=== PATIENT | female | born 1970 | race Caucasian/White ===

== ENCOUNTER 2016-08-02 13:38 | Emergency (ER) | payer OTHER ==
[~2016-08-02] VITALS: Ht 162.6 cm; Wt 69.5 kg
[2016-08-02 13:40] VITALS: BP 148/98; PULSE 83; RESP 16; O2SAT 100
[2016-08-02 14:09] LABS: BASOPHILS % (AUTO) 0.5 % (0-3); EOSINOPHILS % (AUTO) 0.7 % (0-5); MONOCYTES % (AUTO) 9.5 % (4-12); Mean Corpuscular Hemoglobin 32.4 pg (27.0-35.0); NEUTROPHILS % (AUTO) 63.2 % (40-74); Platelet Count 197 bil/L (150-400)
[2016-08-02 14:35] LABS: TROPONIN T < 0.010 ug/L (0.0-0.011)
--- NOTE | 2016-08-02 14:38 | DRSVH ---
PROCEDURE: X-RAY CHEST ONE VIEW, PORTABLE ([id number]) INDICATIONS: CHEST PAIN TECHNIQUE: One view of the chest was acquired. COMPARISON: None. FINDINGS: Surgical changes and devices: None. Lungs and pleura: No pleural effusions or pneumothorax. Lungs are clear. Mediastinum: Mediastinal contours appear normal. Heart size is normal. Bones and chest wall: No suspicious bony lesions. Overlying soft tissues appear unremarkable. IMPRESSION: Normal for age. Dictated by: Johnnie Emerson M.D. on 08/02/2016 at 14:36 Approved by: Johnnie Emerson M.D. on 08/02/2016 at 14:36
[2016-08-02 14:45] LABS: Magnesium 2.2 mg/dL (1.6-2.6)
--- NOTE | 2016-08-02 15:48 | ED.REPORT ---
HPI-Chest Pain 40 and Over Date of Service Aug 02, 2016 ED Provider: Fadi Sorto Patient is a 45 year old female who presents to the ED complaining of midsternal chest pressure onset 1240 today that lasted for 20-30 minutes. Associated symptoms include diaphoresis and SOB. She denies nausea, vomiting, extremity pain, lightheadedness, or any other symptoms. She took 81 mg x3 aspirin at 1300 which lowered her pain from a 6 to a 1. She reports that the water also seemed to help. She had taken Ibuprofen this afternoon on an empty stomach for a headache. She was recently sitting in a car for approximately 7 hours on a trip down to [place]. Nursing Notes Stated Complaint: CHEST PAIN Chief Complaint: Dysrhythmia/Cardiac Nursing Notes Reviewed: Yes Allergies: Coded Allergies: Penicillins (Verified Allergy, Mild, RASH, 08/02/16) General Time Seen by MD: 15:48 Chief Complaint Chest pressure Hx Obtained From: Patient Arrived By: Walk-in Sudden in Onset?: Yes Onset Occurred: 1 - 4 hours ago Similar Sx Previous: No Risk Factors )( CAD Risk Stratification HypertensionNo Diabetes mellitus, No Known CAD Risk factors reviewed )( TAD Risk Stratification HypertensionNo High intensity wt lifting, No Risk factors reviewed )( PE Risk Stratification ImmobilizationNo Estrogen Medicine / BCP's, No , No Previous DVT, No Previous PE Risk factors reviewed Past Medical History Past Medical History Reports: Hypertension, Denies: Coronary artery disease, Diabetes mellitus Past Surgical History Unknown Family History Mother had 2 stents placed in 60's Sister has DM and stents as well. Smoking History Unknown if Ever Smoker Ambulatory Status Independent Review of Systems Respiratory: Reports: Shortness of breath Cardiovascular: Reports: Chest pain GI: Denies: Nausea, Vomiting Musculoskeletal: Denies: Extremity pain Skin: Reports Diaphoresis Neurologic: Denies: Lightheaded Complete sys rev & neg: except as marked. Physical Exam Initial Vital Signs Vital Signs (First) Date Time Temp Pulse Resp B/P Pulse Ox O2 Delivery O2 Flow Rate FiO2 08/02/16 13:40 36.4 83 16 148/98 100 Room Air Initial VS: Reviewed Head / Eyes: Atraumatic, Normocephalic Neck: Supple Skin: Warm, Dry Neurologic: Alert, Oriented, Nonfocal Psychiatric: Mood/affect normal, Behavior normal, Normal thought content General/Constitutional: Awake, Alert, No acute distress, Well developed Respiratory / Chest: Breath sounds NL, Breath sounds = bilat, No respiratory distress Cardiovascular: Heart rate NL, Regular rhythm, Heart sounds NL, No gallop, No murmurs, No rubs Abdomen: Soft, Non-tender, BS normoactive Interpretation & Diagnostics Lab Results Interpretation Result Diagram: 08/02/16 1400 08/02/16 1400 Test 08/02/16 14:00 08/02/16 16:21 White Blood Count 5.6th/mm3 (3.8-10.1) Red Blood Count 4.04mil/mm3 (3.90-5.20) Hemoglobin 13.1g/dL (12.0-15.6) Hematocrit 39.2% (35.0-46.0) Mean Corpuscular Volume 97.0fL (81-100) Mean Corpuscular Hemoglobin 32.4pg (27.0-35.0) Mean Corpuscular Hemoglobin Concent 33.4% (32.0-37.0) Red Cell Distribution Width 13.0% (12.3-15.4) Platelet Count 197bil/L (150-400) Neutrophils (%) (Auto) 63.2% (40-74) Lymphocytes (%) (Auto) 25.7% (14-46) Monocytes (%) (Auto) 9.5% (4-12) Eosinophils (%) (Auto) 0.7% (0-5) Basophils (%) (Auto) 0.5% (0-3) Sodium Level 137mEq/L (134-144) Potassium Level 3.8mEq/L (3.5-5.2) Chloride Level 99mEq/L (97-108) Carbon Dioxide Level 22mmol/L (18-29) Blood Urea Nitrogen 18mg/dL (6-24) Creatinine 0.87mg/dL (0.57-1.00) Estimat Glomerular Filtration Rate 100mL/min (>59) Glucose Level 98mg/dL (60-99) Calcium Level 8.8mg/dL (8.5-10.1) Magnesium Level 2.2mg/dL (1.6-2.6) Total Bilirubin 0.5mg/dL (0.0-1.2) Aspartate Amino Transf (AST/SGOT) 22U/L (0-50) Alanine Aminotransferase (ALT/SGPT) 18U/L (0-32) Alkaline Phosphatase 60U/L (25-150) Total Protein 7.0g/dL (6.4-8.4) Albumin 4.6g/dL (3.4-5.0) Troponin T < 0.010ug/L (0.0-0.011) ECG Interpretation ECG Interpretation: Sinus rate 73 low voltage, precordial leads no acute ischemic changes Time: 15:57 Interpreted by: ED physician X-Ray Chest Interpretation Chest Xray Interpretation: IMPRESSION: Normal for age. Dictated by: Johnnie Emerson M.D. on 08/02/2016 at 14:36 Approved by: Johnnie Emerson M.D. on 08/02/2016 at 14:36 View: Portable, 1 view Interpretation / Wet Read by: Interpret - Radiologist Re-Eval/Medical Decision Source of Hx: Old records Time of Eval: 17:13 Re-Evaluation/Progress Note: Rechecked pt. Her pain has been resolved for some time. Discussed plan for discharge. Patient understands and agrees with plan. All questions addressed at this time. Counseled Regarding: Diagnosis, Lab results, Need for follow-up, When/why to return to ED Discharge & Departure Primary Impression: Chest pain Chest pain type: precordial pain Qualified Code: R07.2 - Precordial pain Disposition: Home Discharge Condition All VS Reviewed: Yes Condition: Improved Patient Instructions: Chest Pain (ED) Additional Instructions: Thank you for entrusting us with your care. There does not appear to be a dangerous cause for your chest pain today. Your EKG, X-ray, and lab results are reassuring. Follow up with your primary care physician within the next week. Take an asprin (81mg) daily Return to the emergency department if you experience another episode of chest pain, sweats, shortness of breath, or any other new or worsening symptoms. Referrals: Greg Frausto MD (PCP) Scribe Attestation Portions of this note were transcribed by Millie Leung. I, Dr. Sorto personally performed the history, physical exam and medical decision-making; I reviewed and confirmed the accuracy of the information in the transcribed note. Signed by: Millie Leung 08/02/2016, [id number] copies to: Greg Frausto MD, Donald L MD Aug 02, 2016 15:48 MILLIE LEUNG Aug 02, 2016 15:52
[2016-08-02 16:30] VITALS: BP 116/89; PULSE 86; RESP 18; O2SAT 98
[2016-08-02 17:11] VITALS: BP 120/88; PULSE 76; RESP 16; O2SAT 98
[2016-08-02 17:27] VITALS: BP 119/77; PULSE 74; RESP 16; O2SAT 98
== END 2016-08-02 17:28 | disposition home or self-care (01) ==
LOC: SED 13:38
DX: R07.2 Precordial pain (principal); I10 Essential (primary) hypertension; Z88.0 Allergy status to penicillin